=== PATIENT | female | born 1945 | race Caucasian/White ===

== ENCOUNTER 2017-06-21 15:40 | Emergency (ER) | payer MEDICARE ==
[~2017-06-21] VITALS: Ht 167.6 cm; Wt 53.5 kg
[2017-06-21 15:40] VITALS: BP_SYST 152
[2017-06-21] MEDS: GENTAMICIN SULFATE 0.3% OPHT. 5 ML DROPS OP ONE (17:49)
[2017-06-21 17:53] VITALS: BP_SYST 152
== END 2017-06-21 17:53 | disposition home or self-care (01) ==
LOC: SED 15:40
DX: T15.91XA Foreign body on external eye, part unspecified, right eye, initial encounter (principal); Z87.442 Personal history of urinary calculi; Z85.3 Personal history of malignant neoplasm of breast
CPT/HCPCS: 99283

== ENCOUNTER 2017-08-07 22:06 | Emergency (ER) | payer MEDICARE ==
[~2017-08-07] VITALS: Ht 165.1 cm; Wt 54.0 kg
[2017-08-07 22:10] VITALS: BP_SYST 123
[2017-08-07] MEDS ORDERED: NACL 0.9% 1,000 ML IV ONE (22:31)
[2017-08-07] MEDS ORDERED: MAG HYDROX/AL HYDROX/SIMETH 30 ML, LIDOCAINE VISCOUS 2% 15ML (PO) 10 ML, BELLADONNA ALK... PO ONE ×3 (22:45)
[2017-08-07] MEDS ORDERED: ONDANSETRON HCL 4 MG/2 ML VIAL IVP ONE (22:45)
[2017-08-07 22:58] LABS: BILIRUBIN,URINE NEGATIVE (NEGATIVE); BLOOD, URINE TRACE (NEGATIVE); CLARITY/URINE CLEAR (CLEAR); COLOR,URINE YELLOW (YELLOW); GLUCOSE,URINE NEGATIVE (NEGATIVE); KETONES,URINE TRACE (NEGATIVE); LEUKOCYTE ESTERASE ,URINE TRACE (NEGATIVE); NITRITE, URINE NEGATIVE (NEGATIVE); PH,URINE 5.5 (5.0-8.0); PROTEIN URINE NEGATIVE (NEGATIVE); UROBILINOGEN,URINE 0.2 (0.2-1.0)
[2017-08-07 23:04] LABS: MEAN CORPUSCULAR VOLUME 87 fL (79.0-98.0); PLATELET COUNT (AUTO) 218 K/uL (130-430)
[2017-08-07 23:04] LABS: BACTERIA,URINE MODERATE /HPF (None Seen); RBC,URINE 0-3 /HPF (0-3)
[2017-08-07 23:05] LABS: MUCUS,URINE 1+ /LPF (None Seen)
[2017-08-07 23:09] LABS: HEMATOCRIT 41.2 % (36-48); HEMOGLOBIN 13.6 g/dL (12.0-16.0); MEAN CORPUSCULAR HEMOGLOBIN 29 pg (27-31); MEAN CORPUSCULAR HGB CONC 33 % (32-36); RED BLOOD CELL COUNT(AUTO) 4.72 MIL/uL (4.2-6.2); WHITE BLOOD COUNT (AUTO) 18.1 K/uL (4.8-10.8)
[2017-08-07 23:10] LABS: ANION GAP 10 (5-15); CALCIUM 9.8 mg/dL (8.4-11.0); CHLORIDE 103 mmol/L (98-107); CREATININE 0.92 mg/dL (0.55-1.30); GLUCOSE 132 mg/dL (70-99); POTASSIUM 3.7 mmol/L (3.5-5.1); SODIUM SERUM 138 mmol/L (136-145); UREA NITROGEN, BLOOD 18 mg/dL (8-21)
[2017-08-07 23:15] LABS: ALANINE AMINOTRANSFERASE 22 U/L (12-78); ALBUMIN 4.1 g/dL (3.4-4.8); ASPARTATE AMINOTRANSFERASE 19 U/L (10-37); LIPASE 110 U/L (73-393); TOTAL BILIRUBIN 0.3 mg/dL (0.0-1.0)
[2017-08-07] MEDS ORDERED: SULFAMETHOXAZOLE/TRIMETHOPR DS 1 TABLET PO ONE (23:15)
[2017-08-07 23:33] LABS: ATYPICAL LYMPHOCYTES % 0 % (0-0); BAND % (MANUAL) 6 % (0-6); BASOPHILS % (MANUAL) 0 % (0-2); EOSINOPHILS % (MANUAL) 1 % (0-7); LYMPHOCYTES % (MANUAL) 6 % (20-46); MONOCYTES % (MANUAL) 7 % (0-11)
[2017-08-07 23:49] VITALS: BP_SYST 131
== END 2017-08-07 23:49 | disposition home or self-care (01) ==
LOC: SED 22:06
DX: T62.8X1A Toxic effect of other specified noxious substances eaten as food, accidental (unintentional), initial encounter (principal); R11.2 Nausea with vomiting, unspecified; N39.0 Urinary tract infection, site not specified; Z87.442 Personal history of urinary calculi; Z90.89 Acquired absence of other organs; Y92.89 Other specified places as the place of occurrence of the external cause
CPT/HCPCS: 36415; 80053; 81000; 83690; 85007; 85027; 87086; 96361; 96374; 99284; J2001; J2405; J7030